=== PATIENT | female | born 1990 | race African-American/Black ===

== ENCOUNTER 2016-07-04 05:48 | Emergency (ER) | payer OTHER ==
[~2016-07-04] VITALS: Ht 167.6 cm; Wt 72.6 kg
[~2016-07-04 05:48] MED LIST: DICY20TA3 PO; PROM25TA10 PO
[2016-07-04 05:53] VITALS: BP 122/81
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
== END 2016-07-04 07:15 | disposition home or self-care (01) ==
LOC: ER 05:48 → EEVIPCON 05:48 → ER 07:15
DX: S01.01XA Laceration without foreign body of scalp, initial encounter (principal); S00.83XA Contusion of other part of head, initial encounter; F12.10 Cannabis abuse, uncomplicated; Y08.89XA Assault by other specified means, initial encounter; Y93.89 Activity, other specified; Y92.89 Other specified places as the place of occurrence of the external cause; Y99.8 Other external cause status
CPT/HCPCS: 99281

== ENCOUNTER 2018-05-05 13:11 | Emergency (ER) | payer OTHER ==
[~2018-05-05] VITALS: Ht 170.2 cm; Wt 72.6 kg
[2018-05-05 13:30] VITALS: BP 115/61
--- NOTE | 2018-05-05 13:46 | PHYS DOC ---
Past Medical History Past Medical History: No Pertinent History Past Surgical History: No Surgical History Alcohol Use: None Drug Use: Marijuana Adult General Chief Complaint Chief Complaint: MULTIPLE COMPLAINTS HPI HPI Patient is a 28 year old f p/w mult complaints 1. ear pain x a few days put a qtip in this am and blood came out. mild nonradiating feels different from prior AOM she tells me 2. intermittent abdo discomfort, currently not having it had some earlier this am while getting out of shower "50/50 i could be doc" last mp was 04/03/18 no dysuria no vomiting no feve,r the pain is resolved now Review of Systems Review of Systems Constitutional: Denies fever or chills [] Musculoskeletal: Denies back pain or joint pain [] Integument: Denies rash or skin lesions [] Neurologic: Denies headache, focal weakness or sensory changes [] Endocrine: Denies polyuria or polydipsia [] All other systems were reviewed and found to be within normal limits, except as documented in this note. Allergies Allergies Allergies Coded Allergies Type Severity Reaction Last Updated Verified No Known Drug Allergies 04/14/13 No Physical Exam Physical Exam Constitutional: Well developed, well nourished, no acute distress, non-toxic appearance. [] HENT: Normocephalic, atraumatic, bilateral external ears normal, oropharynx moist, no oral exudates, nose normal. [] otitis externa right ear inflamed right ear canal, small area of scab where ther was some recent bleeding. tm looks ok, no active bleeding Eyes: PERRLA, EOMI, conjunctiva normal, no discharge. [] Neck: Normal range of motion, no tenderness, supple, no stridor. [] lung: normal resp effort no increased work of breathing Abdomen: Bowel sounds normal, soft, no tenderness, no masses, no pulsatile masses. [] Skin: Warm, dry, no erythema, no rash. [] Extremities: No tenderness, no cyanosis, no clubbing, ROM intact, no edema. [] Neurologic: Alert and oriented X 3, normal motor function, normal sensory function, no focal deficits noted. [] Psychologic: Affect normal, judgement normal, mood normal. [] Current Patient Data Vital Signs Vital Signs Date Time Temp Pulse Resp B/P (MAP) Pulse Ox O2 Delivery O2 Flow Rate FiO2 05/05/18 13:30 98.2 75 19 115/61 (79) 98 Room Air 98.2 Lab Values Laboratory Tests Test 05/05/18 13:45 05/05/18 13:47 Urine Collection Type Unknown Urine Color Yellow Urine Clarity Clear Urine pH 6.0 Urine Specific [place] 1.020 Urine Protein Negative mg/dL (NEG-TRACE) Urine Glucose (UA) Negative mg/dL (NEG) Urine Ketones (Stick) Negative mg/dL (NEG) Urine Blood Negative (NEG) Urine Nitrite Negative (NEG) Urine Bilirubin Negative (NEG) Urine Urobilinogen Dipstick 0.2 mg/dL (0.2 mg/dL) Urine Leukocyte Esterase Negative (NEG) Urine RBC 0 /HPF (0-2) Urine WBC Occ /HPF (0-4) Urine Squamous Epithelial Cells Mod /LPF Urine Bacteria 0 /HPF (0-FEW) Urine Mucus Mod /LPF POC Urine HCG, Qualitative Hcg negative (Negative) EKG EKG [] Radiology/Procedures Radiology/Procedures [] Course & Med Decision Making Course & Med Decision Making Pertinent Labs and Imaging studies reviewed. (See chart for details) otitis externa, drops as noted below intermitent abdo pain none at this time,[] upreg NEG u/a NEG pt reasusred Amy Disclaimer Amy Disclaimer This electronic medical record was generated, in whole or in part, using a voice recognition dictation system. Departure Departure Impression: Primary Impression: Otitis externa Disposition: 01 HOME, SELF-CARE Condition: STABLE Referrals: NO PCP (PCP) Scripts Ciprofloxacin Hcl/Dexameth (CIPRODEX OTIC SUSPENSION) 7.5 Ml Drops.susp 4 DROP EACH EAR BID, #7.5 ML Prov: ISAAC MARMOLEJO MD 05/05/18 ISAAC MARMOLEJO MD May 05, 2018 13:46
[2018-05-05 13:55] LABS: BILIRUBIN,URINE NEGATIVE (NEG); CLARITY,URINE CLEAR; COLOR,URINE YELLOW; NITRITE,URINE NEGATIVE (NEG); PROTEIN,URINE NEGATIVE (NEG-TRACE); UROBILINOGEN,URINE 0.2 mg/dL (0.2 mg/dL)
[2018-05-05 14:00] LABS: BACTERIA,URINE 0 /HPF (0-FEW); RBC,URINE 0 /HPF (0-2); SQUAMOUS EPITHELIAL CELL,UR MOD /LPF; WBC,URINE OCC /HPF (0-4)
[2018-05-05] MEDS ORDERED: CIPR7.5D EACH EAR (14:19)
== END 2018-05-05 14:35 | disposition home or self-care (01) ==
LOC: ER 13:11
DX: H60.8X1 Other otitis externa, right ear (principal)
CPT/HCPCS: 81001; 81025; 99283

== ENCOUNTER → 2018-12-14 | Outpatient (CLI) | payer OTHER ==
[~2018-12-14] VITALS: Ht 167.6 cm; Wt 72.6 kg
[~2018-12-14] MED LIST changes: +CIPR7.5D EACH EAR
[2018-12-14 12:31] VITALS: BP 102/58
== END | disposition home or self-care (01) ==
LOC: OPS 11:02
PROVIDERS: ATTEND Specialist
DX: Z67.41 Type O blood, Rh negative (principal)
CPT/HCPCS: 36415; 86850; 86900; 86901; 96372; J2791

== ENCOUNTER → 2019-02-09 | Outpatient (CLI) | payer OTHER ==
[~2019-02-09] VITALS: Ht 167.6 cm; Wt 87.5 kg
[~2019-02-09] MED LIST changes: +BETAMET ACET&NA PHOS 30 MG/5 ML VIAL. IM SCH; +IV RINGERS,LACTATED 1000ML 1,000 ML IV SCH; +NAPR-514 PO; +OXYC1TAB15 PO
--- NOTE | 2019-02-09 20:59 | RAD ---
Exam: Ultrasound OB limited Indication: Twin Technique: Real-time grayscale and color Doppler images of the pelvis were obtained by the department clinical reviewer. Comparisons: None FINDINGS: There is a twin . Suggestion of a thin membrane the 2 fetuses, which suggests a dichorionic diamniotic or a monochorionic diamniotic . Placenta is fundal and posterior. Cervix measures 4.0 cm in length. WES is measured at 9.9 cm, however this may be inaccurate. Visually WES appears to be within normal range. Fetus a is vertex position and to the left. Fetus B is in the transverse position with head to the left. Fetus A: heart rate measured at 140 bpm. measurements as follows: BPD: 9.15 cm corresponding to 37 weeks 1 day Head circumference: 32.2 cm Corresponding to gestational age of 36 weeks 3 days Abdominal circumference: 30.1 cm corresponding to 34 weeks 0 days Femur length 6.8 cm corresponding to 35 weeks 2 days Estimated age by ultrasound is 35 weeks 5 days BPP was performed by the department clinical reviewer and was recorded as follows: tone: 2 breathin movement: 2 WES is within normal range. Fetus B: heart rate measured at 139 bpm Abdominal circumference: 29.4 cm corresponding to 33 weeks 3 days BPD: 8.4 corresponding to 33 weeks 6 days Head circumference: 31.64 corresponding to 35 weeks 4 days Femur length: 6.78 cm corresponding to 34 weeks 6 days Estimated age by ultrasound is 34 weeks 2 days BPP was performed by the department clinical reviewer and was recorded as follows: tone: 2 breathin movement: 2 WES is within normal range. IMPRESSION: 1. Twin with measurements and dating as described above. 2. Subtle membrane the 2 fetuses. Correlate with any prior ultrasounds if performed for chronicity. 3. BPP was performed by the department clinical reviewer with reported scores as above Electronically signed by: Esperanza Sultana MD (02/09/2019 8:56 PM) [id number]
--- NOTE | 2019-02-09 20:59 | RAD ---
Exam: Ultrasound OB limited Indication: Twin Technique: Real-time grayscale and color Doppler images of the pelvis were obtained by the department bilingual operator. Comparisons: None FINDINGS: There is a twin . Suggestion of a thin membrane the 2 fetuses, which suggests a dichorionic diamniotic or a monochorionic diamniotic . Placenta is fundal and posterior. Cervix measures 4.0 cm in length. WES is measured at 9.9 cm, however this may be inaccurate. Visually WES appears to be within normal range. Fetus a is vertex position and to the left. Fetus B is in the transverse position with head to the left. Fetus A: heart rate measured at 140 bpm. measurements as follows: BPD: 9.15 cm corresponding to 37 weeks 1 day Head circumference: 32.2 cm Corresponding to gestational age of 36 weeks 3 days Abdominal circumference: 30.1 cm corresponding to 34 weeks 0 days Femur length 6.8 cm corresponding to 35 weeks 2 days Estimated age by ultrasound is 35 weeks 5 days BPP was performed by the department bilingual operator and was recorded as follows: tone: 2 breathin movement: 2 WES is within normal range. Fetus B: heart rate measured at 139 bpm Abdominal circumference: 29.4 cm corresponding to 33 weeks 3 days BPD: 8.4 corresponding to 33 weeks 6 days Head circumference: 31.64 corresponding to 35 weeks 4 days Femur length: 6.78 cm corresponding to 34 weeks 6 days Estimated age by ultrasound is 34 weeks 2 days BPP was performed by the department bilingual operator and was recorded as follows: tone: 2 breathin movement: 2 WES is within normal range. IMPRESSION: 1. Twin with measurements and dating as described above. 2. Subtle membrane the 2 fetuses. Correlate with any prior ultrasounds if performed for chronicity. 3. BPP was performed by the department bilingual operator with reported scores as above Electronically signed by: Esperanza Sultana MD (02/09/2019 8:56 PM) [id number]
--- NOTE | 2019-02-09 20:59 | RAD ---
Exam: Ultrasound OB limited Indication: Twin Technique: Real-time grayscale and color Doppler images of the pelvis were obtained by the department driver. Comparisons: None FINDINGS: There is a twin . Suggestion of a thin membrane the 2 fetuses, which suggests a dichorionic diamniotic or a monochorionic diamniotic . Placenta is fundal and posterior. Cervix measures 4.0 cm in length. WES is measured at 9.9 cm, however this may be inaccurate. Visually WES appears to be within normal range. Fetus a is vertex position and to the left. Fetus B is in the transverse position with head to the left. Fetus A: heart rate measured at 140 bpm. measurements as follows: BPD: 9.15 cm corresponding to 37 weeks 1 day Head circumference: 32.2 cm Corresponding to gestational age of 36 weeks 3 days Abdominal circumference: 30.1 cm corresponding to 34 weeks 0 days Femur length 6.8 cm corresponding to 35 weeks 2 days Estimated age by ultrasound is 35 weeks 5 days BPP was performed by the department driver and was recorded as follows: tone: 2 breathin movement: 2 WES is within normal range. Fetus B: heart rate measured at 139 bpm Abdominal circumference: 29.4 cm corresponding to 33 weeks 3 days BPD: 8.4 corresponding to 33 weeks 6 days Head circumference: 31.64 corresponding to 35 weeks 4 days Femur length: 6.78 cm corresponding to 34 weeks 6 days Estimated age by ultrasound is 34 weeks 2 days BPP was performed by the department driver and was recorded as follows: tone: 2 breathin movement: 2 WES is within normal range. IMPRESSION: 1. Twin with measurements and dating as described above. 2. Subtle membrane the 2 fetuses. Correlate with any prior ultrasounds if performed for chronicity. 3. BPP was performed by the department driver with reported scores as above Electronically signed by: Esperanza Sultana MD (02/09/2019 8:56 PM) [facility]
--- NOTE | 2019-02-09 20:59 | RAD ---
Exam: Ultrasound OB limited Indication: Twin Technique: Real-time grayscale and color Doppler images of the pelvis were obtained by the department manual lathe machinist. Comparisons: None FINDINGS: There is a twin . Suggestion of a thin membrane the 2 fetuses, which suggests a dichorionic diamniotic or a monochorionic diamniotic . Placenta is fundal and posterior. Cervix measures 4.0 cm in length. WES is measured at 9.9 cm, however this may be inaccurate. Visually WES appears to be within normal range. Fetus a is vertex position and to the left. Fetus B is in the transverse position with head to the left. Fetus A: heart rate measured at 140 bpm. measurements as follows: BPD: 9.15 cm corresponding to 37 weeks 1 day Head circumference: 32.2 cm Corresponding to gestational age of 36 weeks 3 days Abdominal circumference: 30.1 cm corresponding to 34 weeks 0 days Femur length 6.8 cm corresponding to 35 weeks 2 days Estimated age by ultrasound is 35 weeks 5 days BPP was performed by the department manual lathe machinist and was recorded as follows: tone: 2 breathin movement: 2 WES is within normal range. Fetus B: heart rate measured at 139 bpm Abdominal circumference: 29.4 cm corresponding to 33 weeks 3 days BPD: 8.4 corresponding to 33 weeks 6 days Head circumference: 31.64 corresponding to 35 weeks 4 days Femur length: 6.78 cm corresponding to 34 weeks 6 days Estimated age by ultrasound is 34 weeks 2 days BPP was performed by the department manual lathe machinist and was recorded as follows: tone: 2 breathin movement: 2 WES is within normal range. IMPRESSION: 1. Twin with measurements and dating as described above. 2. Subtle membrane the 2 fetuses. Correlate with any prior ultrasounds if performed for chronicity. 3. BPP was performed by the department manual lathe machinist with reported scores as above Electronically signed by: Esperanza Sultana MD (02/09/2019 8:56 PM) [facility]
[2019-02-16 14:33] VITALS: BP 123/75
== END ==
LOC: 3 SO LND 16:32 → OPLND 16:32 → UNDOADMOB 16:32 → UNDODISOB 19:09 → EDSTATUS 03-21 19:24
PROVIDERS: ATTEND Specialist
DX: O30.043 Twin pregnancy, dichorionic/diamniotic, third trimester (principal); O41.8X30 Other specified disorders of amniotic fluid and membranes, third trimester, not applicable or unspecified; Z3A.36 36 weeks gestation of pregnancy
CPT/HCPCS: 59025; 76815; 76816; 76819; 96372; G0378; G0379; J0702

== ENCOUNTER → 2019-02-10 | Outpatient (CLI) | payer OTHER ==
[2018-12-14 12:31] VITALS: BP 102/58
[~2019-02-10] MED LIST changes: -IV RINGERS,LACTATED 1000ML 1,000 ML IV SCH
== END ==
LOC: OPLND 18:09 → UNDOADMOB 18:25 → 3 SO LND 18:25 → UNDODISOB 18:45
PROVIDERS: ATTEND Specialist
DX: O30.043 Twin pregnancy, dichorionic/diamniotic, third trimester (principal); O41.8X30 Other specified disorders of amniotic fluid and membranes, third trimester, not applicable or unspecified; Z3A.36 36 weeks gestation of pregnancy
CPT/HCPCS: 96372; G0378; G0379; J0702

== ENCOUNTER → 2019-07-04 | Outpatient (CLI) | payer OTHER ==
[2019-02-16 14:33] VITALS: BP 123/75
[~2019-07-04] MED LIST changes: -BETAMET ACET&NA PHOS 30 MG/5 ML VIAL. IM SCH
--- NOTE | 2019-07-04 13:42 | KCIC ---
EXAM: Bilateral breast sonogram. HISTORY: 29-year-old female presents with bilateral breast lumps and breast pain. TECHNIQUE: Sonographic imaging of both breasts including all 4 quadrants and the retroareolar regions was performed. COMPARISON: None. FINDINGS: There is mild bilateral ductal ectasia. No suspicious lesion is seen. There is no lymphadenopathy. IMPRESSION: 1. Mild bilateral ductal ectasia. 2. No suspicious sonographic finding. Continued clinical follow-up of palpable abnormalities is recommended. Negative imaging should not preclude the decision to biopsy a palpable abnormality if there is continuing concern. Note is made that the combination of the young patient age and 4 months patient status lowers the sensitivity of mammography. 3. BI-RADS Category 2: Benign finding(s). Electronically signed by: Disha Hamilton MD (07/04/2019 1:39 PM) [id number]
== END | disposition home or self-care (01) ==
LOC: KCIC MAMMO 12:42
PROVIDERS: ATTEND Family Medicine
DX: N60.42 Mammary duct ectasia of left breast (principal); N60.41 Mammary duct ectasia of right breast
CPT/HCPCS: 76641